=== PATIENT | female | born 1990 | race Caucasian/White ===

== ENCOUNTER → 2018-06-03 | Outpatient (CLI) | payer BC ==
[~2018-06-03] MED LIST: ALPR0.5T PO; BUSP10TA95 PO; DULO60CA6 PO; LEVO1CAP PO
--- NOTE | 2018-06-03 12:14 | Diagnostic Imaging Report ---
PROCEDURE: US Abdomen, limited. TECHNIQUE: Multiple realtime grayscale images were obtained over the abdomen in various projections. INDICATION: Bulge near umbilicus. There are no prior studies available for comparison. FINDINGS: Reportedly, there is clinical concern regarding a ventral hernia. There does seem to be a small 1 cm defect in the anterior abdominal wall just superior to the umbilicus. A small portion of the mesenteric fat has extended through this defect but there is no incarceration or obstruction of the bowel in this area. No other abnormality is identified. IMPRESSION: 1. There is a small defect in the anterior abdominal wall but there is no evidence for obstruction or incarceration of the bowel in this area. 2. If further imaging is desired, then CT would be recommended. Dictated by: Dictated on workstation # [id number]
== END ==
LOC: RAD 09:41
PROVIDERS: ATTEND Nurse Practitioner Family
DX: R10.9 Unspecified abdominal pain (principal)
CPT/HCPCS: 76705

== ENCOUNTER 2018-06-09 06:38 | Outpatient (CLI) | payer BC ==
[~2018-06-09] VITALS: Ht 157.5 cm; Wt 99.8 kg
[2018-06-09] MEDS ORDERED: DULO60CA6 PO (11:59)
[2018-06-09] MEDS ORDERED: LEVO1CAP PO (11:59)
[2018-06-09] MEDS ORDERED: ALPR0.5T PO (11:59)
[2018-06-09] MEDS ORDERED: BUSP10TA95 PO (12:52)
== END 2018-06-09 13:00 | disposition home or self-care (01) ==
LOC: PREOP 06:38
PROVIDERS: ATTEND Surgery
DX: Z01.818 Encounter for other preprocedural examination (principal)

== ENCOUNTER 2018-06-11 09:34 | Day surgery (SDC) | payer BC ==
[2018-06-11] VITALS (7 sets, daily range): BP systolic 94–116; BP diastolic 51–75
[~2018-06-11] VITALS: Ht 157.5 cm; Wt 99.8 kg
[2018-06-11] MEDS ORDERED: BUP/EPI 0.5% 1:200,000 (SENSORCAINE) 30 ML VIAL ONE (09:56)
[2018-06-11] MEDS ORDERED: oxyCODONE ER 10 MG (OxyCONTIN CR) TAB PO ONE (10:00)
[2018-06-11] MEDS ORDERED: PREGABALIN 75 MG (LYRICA) CAP PO ONE (10:00)
[2018-06-11] MEDS ORDERED: KETOROLAC 30 MG/ML VIAL IV SCH (10:00)
[2018-06-11] MEDS ORDERED: morphine INJ 10 MG/ML 1ML (SYR OR VIAL) IV PRN (10:00)
[2018-06-11] MEDS ORDERED: ceFAZolin 2 GM IV Premixed 50 ML IV ONE (10:00)
[2018-06-11] MEDS ORDERED: CELECOXIB 100 MG (CeleBREX) CAP PO ONE (10:00)
[2018-06-11] MEDS ORDERED: ceFAZolin 2 GM/50 ML PRE-MIX IVPB IV ONE (10:00)
[2018-06-11] MEDS: LACTATED RINGERS 1,000 ML IV PRN ×2 (10:00→12:25)
[2018-06-11] MEDS ORDERED: ACETAMINOPHEN 500 MG TAB (TYLENOL) PO ONE (10:00)
[2018-06-11] MEDS ORDERED: LIDOCAINE PF 0.5% 50 ML (XYLOCAINE) VIAL ONE ×2 (10:14→13:12)
[2018-06-11] MEDS ORDERED: proPOfol 200 MG/20 ML (DIPRIVAN) VIAL IV ONE (10:14)
[2018-06-11] MEDS ORDERED: MIDAZOLAM 2 MG/2 ML (VERSED) VIAL ONE (10:15)
[2018-06-11] MEDS ORDERED: KETAMINE HCL 100 MG/ML 5 ML VIAL ONE (10:15)
[2018-06-11 10:21] LABS: BASOPHILS % (AUTO) 1 % (0-10); EOSINOPHILS # (AUTO) 0.1 10^3/uL (0.0-0.3); EOSINOPHILS % (AUTO) 3 % (0-10); HEMATOCRIT 38 % (35-52); HEMOGLOBIN 13.2 G/DL (11.5-16.0); LYMPHOCYTES # (AUTO) 1.7 X 10^3 (1.0-4.0); LYMPHOCYTES % (AUTO) 39 % (12-44); MEAN CORPUSCULAR HEMOGLOBIN 29 PG (25-34); MEAN CORPUSCULAR HGB CONC 35 G/DL (32-36); MEAN CORPUSCULAR VOLUME 85 FL (80-99); MEAN PLATELET VOLUME 9.9 FL (7.4-10.4); MONOCYTES # (AUTO) 0.4 X 10^3 (0.0-1.0); MONOCYTES % (AUTO) 9 % (0-12); NEUTROPHILS # (AUTO) 2.1 X 10^3 (1.8-7.8); NEUTROPHILS % (AUTO) 48 % (42-75); PLATELET COUNT 282 10^3/uL (130-400); RED BLOOD COUNT 4.52 10^6/uL (4.35-5.85); RED CELL DISTRIBUTION WIDTH 13.6 % (10.0-14.5); WHITE BLOOD COUNT 4.3 10^3/uL (4.3-11.0)
[2018-06-11] MEDS ORDERED: ONDANSETRON 4 MG/2 ML (SDV) Z0FRAN ONE (10:28)
[2018-06-11] MEDS ORDERED: ROCURONIUM 10 MG/ML 5 ML SYRINGE IV ONE ×2 (10:28→12:50)
[2018-06-11] MEDS ORDERED: DEXAMETHASONE 10 MG/ML (DECADRON) 1 ML VIAL ONE (10:28)
[2018-06-11] MEDS ORDERED: SEVOFLURANE (ULTANE) 15 ML INHAL SOLN ONE ×7 (10:28→14:04)
[2018-06-11] MEDS ORDERED: FAMOTIDINE 20MG/2ML IV (PEPCID) IVP ONE (10:30)
--- NOTE | 2018-06-11 11:21 | Progress Note-Pre Operative ---
Pre-Operative Progress Note H&P Reviewed The H&P was reviewed, patient examined and no changes noted. Date Seen by Provider: Jun 07, 2018 Time Seen by Provider: 16:20 Date H&P Reviewed: Jun 11, 2018 Time H&P Reviewed: 11:21 Pre-Operative Diagnosis: ventral hernia SHANTHI HOSKINS MD Jun 11, 2018 11:21
[2018-06-11] MEDS ORDERED: HYDR25CA PO (12:02)
[2018-06-11] MEDS ORDERED: ROPIVACAINE 5MG/ML 30ML VIAL ONE (12:50)
[2018-06-11] MEDS ORDERED: PHENYLEPHRINE INJ 10 MG/ML (NEO-SYNEPHRINE 1%) ONE (12:52)
[2018-06-11] MEDS ORDERED: GLYCOPYRROLATE 0.2 MG/ML (ROBINUL) 2 ML VIAL ONE (12:57)
[2018-06-11] MEDS ORDERED: NEOSTIGMINE 1 MG/ML 5 ML SYRINGE ONE (12:57)
[2018-06-11] MEDS ORDERED: NS (IVPB) 250 ML ONE (13:12)
--- NOTE | 2018-06-11 13:23 | Operative Report ---
Operative Report Date of Procedure/Surgery Jun 11, 2018 Surgeon (s) SHANTHI HOSKINS MD Breaker Mechanic (s): Shaylee Conley (Med Student III) Post-Operative Diagnosis same Procedure Performed robotic assisted repair of ventral hernia with mesh Description of Procedure Anesthesia Type: General Estimated blood loss (mL): minimal Specimen(s) collected/removed none Description of the Procedure Indication for the procedure: This lady presented with a primary ventral hernia with incarcerated omentum, just superior to the umbilicus. She was offered repair using minimally invasive technique robotic assistance and mesh reinforcement. Informed consent was obtained after reviewing the operative details and complications of wound infection, infection of the mesh and recurrence of the hernia. Description of the procedure: she was placed supine on the operative table and general anesthesia induced. 2 g of Ancef were administered intravenously as prophylaxis against wound infection. Sequential compression devices were placed around her legs, to minimize the risk of venous thrombosis. Abdomen was then and draped in the usual sterile manner. The right side of her body was lifted up and a roll to facilitate strangulation of the robotic system. Pneumoperitoneum was established using a Veress needle introduced over the right subcostal margin, along the mid clavicular line. Intra-abdominal pressure was maintained at 15 mmHg using carbon dioxide insufflation. A 12 mm trocar was placed and anatomy visualized using the 30, high-definition laparoscope, associated with da Radha system. Under direct view, I placed another 10 mm trocar along the right side of the abdomen, overlying the midaxillary line, followed by an 8 mm trocar over the right lower quadrant. The robotic system was then docked in place. Laparoscopic survey confirmed omentum and extraperitoneal fat, herniating through a 2 cm defect superior to the umbilicus. It was reduced and the defect closed primarily using 0V LOC suture with robotic assistance. Intra-abdominal pressure was reduced to 11 mmHg, during this maneuver, to reduce the tension on the repair. It was then reinforced with polypropylene mesh measuring 11.4 cm in diameter, attached to a self-retaining balloon system. The edges of the mesh was secured to the abdominal muscles using 20V LOC sutures with the robotic assistance. Hemostasis was satisfactory and the operation concluded. Incisions were closed using 4-0 Vicryl, in a subcuticular fashion. 0.5 percent Marcaine with epinephrine was infiltrated along the incisions, both preemptively and at the conclusion of the operation. She tolerated the procedure well, was extubated in the operating room and taken to the recovery room in a stable condition. Findings of the Procedure See op report Allergies and Home Medications Allergies Coded Allergies: shellfish derived (Verified Allergy, Mild, GI UPSET, 06/09/18) Home Medications Alprazolam 0.5 Mg Tablet, 0.5 MG PO PRN, (Reported) Buspirone HCl 10 Mg Tablet, 20 MG PO BID, (Reported) Duloxetine HCl 60 Mg Capsule.dr, 90 MG PO DAILY, (Reported) Hydroxyzine Pamoate 25 Mg Capsule, 25-50 MG PO HS PRN for PRN, (Reported) Levomefolate/Algal Oil 1 Each Capsule, 1 EACH PO DAILY, (Reported) Patient Home Medication List Home Medication List Reviewed: Yes SHANTHI HOSKINS MD Jun 11, 2018 13:23
[2018-06-11] MEDS ORDERED: OXYC1TAB87 PO (13:24)
--- NOTE | 2018-06-11 13:25 | Discharge Inst-Simple/Standard ---
Discharge Inst-Standard Discharge Medications New, Converted or Re-Newed RX: RX on Chart Patient Instructions/Follow Up Plan of Care/Instructions/FU: Band-Aids off in 48 hours. Incentive spirometry. Follow-up in 4 weeks Activity as Tolerated: No Goal: no lifting over 10 pounds. Discharge Diet: No Restrictions SHANTHI HOSKINS MD Jun 11, 2018 13:25
[2018-06-11] MEDS ORDERED: KETOROLAC 30 MG/ML VIAL IVP ONE (14:00)
[2018-06-11] MEDS ORDERED: HYDROmorphone 2 MG/ML VIAL (DILAUDID) IV ONE (14:00)
[2018-06-11] MEDS ORDERED: MEPERIDINE (DEMEROL) INJ 50 MG/ML IVP ONE (14:00)
[2018-06-11] MEDS ORDERED: fentaNYL INJECTION 100 MCG/2 ML AMP IVP ONE ×2 (14:00→16:00)
[2018-06-11] MEDS ORDERED: ONDANSETRON 4 MG/2 ML (SDV) Z0FRAN IVP PRN (14:00)
[2018-06-11] MEDS ORDERED: PHENYLEPHRINE 100 MCG/ML 10 ML (ANESTHESIA) SYR ONE (14:04)
[2018-06-11] MEDS ORDERED: oxyCODONE/APAP 5/325MG (PERCOCET 5) TABLET PO ONE (15:00)
== END 2018-06-11 18:40 | disposition home or self-care (01) ==
LOC: SDC 09:34
PROVIDERS: ATTEND Surgery
DX: K43.6 Other and unspecified ventral hernia with obstruction, without gangrene (principal); J45.909 Unspecified asthma, uncomplicated; K21.9 Gastro-esophageal reflux disease without esophagitis; E66.01 Morbid (severe) obesity due to excess calories; Z68.41 Body mass index [BMI] 40.0-44.9, adult; Z79.899 Other long term (current) drug therapy
CPT/HCPCS: 36415; 84703; 85025; 87081; 94664

== ENCOUNTER → 2020-04-09 | Outpatient (CLI) | payer BC ==
[~2020-04-09] MED LIST changes: +HYDR25CA PO; +OXYC1TAB87 PO
--- NOTE | 2020-04-09 16:15 | Diagnostic Imaging Report ---
PROCEDURE: CT head without contrast. TECHNIQUE: Multiple contiguous axial images were obtained through the brain without the use of intravenous contrast. Auto Exposure Controls were utilized during the CT exam to meet ALARA standards for radiation dose reduction. INDICATION: Headache and dizziness. FINDINGS: The ventricles and sulci are within normal limits. There is no hydrocephalus or cerebral edema. There is no midline shift or mass effect. There is no intracranial mass, hemorrhage, or extra-axial fluid collection. The visualized paranasal sinuses and mastoid air cells are clear. There are no regional areas of decreased attenuation appreciated to suggest an acute CVA. IMPRESSION: No acute intracranial abnormality. Dictated by: Dictated on workstation # [id number]
== END ==
LOC: RAD 15:45
PROVIDERS: ATTEND Nurse Practitioner Family
DX: R51 Headache (principal)
CPT/HCPCS: 70450

== ENCOUNTER 2021-08-14 17:41 | Emergency (ER) | payer BC ==
[~2021-08-14] VITALS: Ht 157.5 cm; Wt 67.6 kg
[~2021-08-14 17:41] MED LIST changes: -DULO60CA6 PO; +DULO60CA7 PO
--- NOTE | 2021-08-14 18:07 | ED Respiratory ---
General Chief Complaint: COVID19 Suspect/Confirmed Stated Complaint: LOW O2 History of Present Illness Date Seen by Provider: Aug 14, 2021 Time Seen by Provider: 18:00 Initial Comments 31-year-old female presents for SaO2's in the upper 80s. She has had COVID symptoms for approximately 7 days, she was tested yesterday and found to be positive at [facility]. She has been managing at home but checking her pulse ox. She reports that it gets to 88 or 89% but does not maintain there it does return back to the 94 to 96% range. She has not been vaccinated from Covid. She was not referred for monoclonial antibody infusions. She lives with her mom, who is COVID + but not as sick. Mother was vaccinated. Timing/Duration: week Severity: moderate Associated Symptoms: No chest pain/soreness; cough; No dizziness, No earache, No facial pain; fever/chills, lightheadedness, muscle aches; No nasal congestion, No nasal drainage; shortness of breath Allergies and Home Medications Allergies Coded Allergies: shellfish derived (Verified Allergy, Mild, GI UPSET, 06/09/18) Patient Home Medication List Home Medication List Reviewed: Yes Alprazolam (Xanax) 0.5 Mg Tablet, 0.5 MG PO PRN, (Reported) Entered as Reported by: NAOMIE TAN on 06/09/18 1159 Buspirone HCl (Buspirone HCl) 10 Mg Tablet, 20 MG PO BID, (Reported) Entered as Reported by: NAOMIE TAN on 06/09/18 1252 Dexamethasone (Decadron) 6 Mg Tablet, 6 MG PO DAILY Prescribed by: STAR PRESLEY on 08/14/212018 Duloxetine HCl (Cymbalta) 60 Mg Capsule.dr, 90 MG PO DAILY, (Reported) Entered as Reported by: NAOMIE TAN on 06/09/18 1159 Hydroxyzine Pamoate (Vistaril) 25 Mg Capsule, 25-50 MG PO HS PRN for PRN, (Reported) Entered as Reported by: THOMAS MATRIN on 06/11/18 1202 Levomefolate/Algal Oil (Deplin-Algal Oil 15 mg Capsule) 1 Each Capsule, 1 EACH PO DAILY, (Reported) Entered as Reported by: NAOMIE TAN on 06/09/18 1159 Oxycodone HCl/Acetaminophen (Percocet 5-325 mg Tablet) 1 Each Tablet, 1 TAB PO Q4H PRN for PAIN-MODERATE Prescribed by: SHANTHI HOSKINS on 06/11/18 1324 Review of Systems Review of Systems Constitutional: see HPI, fever, malaise, weakness EENTM: see HPI, no symptoms reported Respiratory: see HPI, cough, dyspnea on exertion Cardiovascular: no symptoms reported, see HPI Gastrointestinal: no symptoms reported, see HPI, loss of appetite Genitourinary: no symptoms reported, see HPI Musculoskeletal: no symptoms reported, see HPI Skin: No rash All Other Systems Reviewed Negative Unless Noted: Yes Past Dcvavsg-Apbfbp-Ofyopk Hx Patient Social History Smoking Status: Never a Smoker Smokeless Tobacco Frequency: Never a User Use of E-Cig and/or Vaping Ismael: Never a User Substance use?: No Alcohol Use?: Yes Alcohol Frequency: Rarely Pt feels they are or have been: No Seasonal Allergies Seasonal Allergies: No Past Medical History Tonsillectomy Headaches /Migraines Reproductive Disorders: No Sexually Transmitted Disease: No HIV/AIDS: No Gastroesophageal Reflux Loss of Vision: Bilateral Hearing Impairment: Denies Anxiety, Depression Adverse Reaction/Blood Tranf: No (N/A) Family Medical History Reviewed Nursing Family Hx Physical Exam Vital Signs - First Documented 08/14/21 17:59 Temp 38.3 Pulse 116 Resp 17 B/P (MAP) 115/79 (91) O2 Delivery Room Air Capillary Refill : Height: 5'2.00" Weight: 220lbs. 0.0oz. 99.822064xa; 40.2 BMI Method: General Appearance: mild distress HEENT: PERRL/EOMI, normal ENT inspection, TMs normal, pharynx normal Neck: non-tender, full range of motion, supple, normal inspection Respiratory: chest non-tender, decreased breath sounds Cardiovascular: normal peripheral pulses, regular rate, rhythm, tachycardia Gastrointestinal: normal bowel sounds, non tender, soft Neurologic/Psychiatric: no motor/sensory deficits, alert, normal mood/affect, oriented x 3 Skin: normal color, warm/dry Focused Exam Lactate Level 08/14/21 18:05: Lactic Acid Level 0.66 Lactic Acid Level Laboratory Tests Test 08/14/21 18:05 Lactic Acid Level 0.66 MMOL/L (0.50-2.00) Progress/Results/Core Measures Suspected Sepsis SIRS Temperature: Pulse: Respiratory Rate: Laboratory Tests 08/14/21 18:05: White Blood Count 2.2L Blood Pressure / Mean: 08/14/21 18:05: Lactic Acid Level 0.66 Laboratory Tests 08/14/21 18:05: Creatinine 0.98, INR Comment 0.9, Platelet Count 134, Total Bilirubin 0.2 Results/Orders Lab Results Laboratory Tests Test 08/14/21 18:05 08/14/21 18:25 08/14/21 19:45 08/14/21 21:12 Range/Units White Blood Count 2.2 L 4.3-11.0 10^3/uL Red Blood Count 4.65 3.80-5.11 10^6/uL Hemoglobin 13.3 11.5-16.0 g/dL Hematocrit 40 35-52 % Mean Corpuscular Volume 87 80-99 fL Mean Corpuscular Hemoglobin 29 25-34 pg Mean Corpuscular Hemoglobin Concent 33 32-36 g/dL Red Cell Distribution Width 13.6 10.0-14.5 % Platelet Count 134 130-400 10^3/uL Mean Platelet Volume 10.8 9.0-12.2 fL Immature Granulocyte % (Auto) 0 % Neutrophils (%) (Auto) 61 42-75 % Lymphocytes (%) (Auto) 30 12-44 % Monocytes (%) (Auto) 9 0-12 % Eosinophils (%) (Auto) 0 0-10 % Basophils (%) (Auto) 1 0-10 % Neutrophils # (Auto) 1.3 L 1.8-7.8 10^3/uL Lymphocytes # (Auto) 0.7 L 1.0-4.0 10^3/uL Monocytes # (Auto) 0.2 0.0-1.0 10^3/uL Eosinophils # (Auto) 0.0 0.0-0.3 10^3/uL Basophils # (Auto) 0.0 0.0-0.1 10^3/uL Immature Granulocyte # (Auto) 0.0 0.0-0.1 10^3/uL Percent Immature Platelet Fraction 3.4 0.0-7.6 % Prothrombin Time 12.7 12.2-14.7 SEC INR Comment 0.9 0.8-1.4 Activated Partial Thromboplast Time 34 24-35 SEC Sodium Level 136 135-145 MMOL/L Potassium Level 4.0 3.6-5.0 MMOL/L Chloride Level 103 98-107 MMOL/L Carbon Dioxide Level 22 21-32 MMOL/L Anion Gap 11 5-14 MMOL/L Blood Urea Nitrogen 10 7-18 MG/DL Creatinine 0.98 0.60-1.30 MG/DL Estimat Glomerular Filtration Rate 66 BUN/Creatinine Ratio 10 Glucose Level 99 70-105 MG/DL Lactic Acid Level 0.66 0.50-2.00 MMOL/L Calcium Level 8.2 L 8.5-10.1 MG/DL Corrected Calcium 8.5 8.5-10.1 MG/DL Total Bilirubin 0.2 0.1-1.0 MG/DL Aspartate Amino Transf (AST/SGOT) 20 5-34 U/L Alanine Aminotransferase (ALT/SGPT) 17 0-55 U/L Alkaline Phosphatase 57 40-136 U/L Total Protein 6.7 6.4-8.2 GM/DL Albumin 3.6 3.2-4.5 GM/DL Influenza Type A Antigen NEGATIVE NEGATIVE Influenza Type B Antigen NEGATIVE NEGATIVE Urine Color YELLOW Urine Clarity CLEAR Urine pH 6.0 5-9 Urine Specific [place] 1.020 1.016-1.022 Urine Protein NEGATIVE NEGATIVE Urine Glucose (UA) NEGATIVE NEGATIVE Urine Ketones TRACE H NEGATIVE Urine Nitrite NEGATIVE NEGATIVE Urine Bilirubin NEGATIVE NEGATIVE Urine Urobilinogen 0.2 < = 1.0 MG/DL Urine Leukocyte Esterase NEGATIVE NEGATIVE Urine RBC (Auto) NEGATIVE NEGATIVE Urine RBC NONE /HPF Urine WBC 5-10 H /HPF Urine Squamous Epithelial Cells 2-5 /HPF Urine Crystals NONE /LPF Urine Bacteria NEGATIVE /HPF Urine Casts PRESENT /LPF Urine Hyaline Casts 2-5 H /LPF Urine Mucus SMALL H /LPF Urine Culture Indicated CULTURE PENDING D-Dimer 0.44 0.00-0.49 UG/ML Test 08/14/21 21:14 Range/Units C-Reactive Protein High Sensitivity 1.89 H 0.00-0.50 MG/DL My Orders Orders - STAR PRESLEY Cbc With Automated Diff (08/14/21 18:04) Comprehensive Metabolic Panel (08/14/21 18:04) Blood Culture (08/14/21 18:04) Urinalysis (08/14/21 18:04) Urine Culture (08/14/21 18:04) Protime With Inr (08/14/21 18:04) Partial Thromboplastin Time (08/14/21 18:04) Chest 1 View, Ap/Pa Only (08/14/21 18:04) Ed Iv/Invasive Line Start (08/14/21 18:04) Influenza A & B Antigens (08/14/21 18:04) Ns Iv 1000 Ml (Sodium Chloride 0.9%) (08/14/21 18:15) Lactic Acid Analyzer (08/14/21 18:04) Acetaminophen Tablet (Tylenol Tablet) (08/14/21 18:04) Covid-19 External Lab Results (08/14/21 18:08) Isolation Central Supply Req (08/14/21 18:08) Rx-Albuterol Inhaler (Rx-Ventolin Hfa In (08/14/21 18:27) Dexamethasone Injection (Decadron Inje (08/14/21 18:27) Ed Iv/Invasive Line Start (08/14/21 19:22) Ns Iv 1000 Ml (Sodium Chloride 0.9%) (08/14/21 19:30) Rt Request For Service (08/14/21 20:46) Ambulate W/O 02-Home O2 Qual (08/14/21 20:56) Ct Angio Chest W (08/14/21 21:10) Iohexol Injection (Omnipaque 350 Mg/Ml 1 (08/14/21 21:15) Received Contrast (Hold Metformin- Contr (08/14/21 21:15) Ns (Ivpb) (Sodium Chloride 0.9% Ivpb Bag (08/14/21 21:15) Aspirin Tablet (Aspirin Tablet) (08/14/21 21:47) Incentive Spirometry (Nursing) Q2H (08/14/21 21:47) Vital Signs/I&O 08/14/21 08/14/21 08/14/21 08/14/21 17:59 17:59 18:17 19:48 Temp 38.3 38.3 38.0 Pulse 116 Resp 17 B/P (MAP) 115/79 (91) O2 Delivery Room Air Room Air Capillary Refill : Progress Note : Time: 18:00 Progress Note Patient seen and evaluated, will obtain labs, chest x-ray, 1 L IV fluid, Decadron 6 mg IV and 2 puffs of albuterol inhaler. SaO2 maintained 90-94%. Patient assisted to lie prone. 1899 will give second liter of NS. Temp 38.0. No complaints, UA Obtained. 2014 temp down to 37.7, SaO2 95% on 2 L O2 per [place]. [address] Pickett, discussed patient and reviewed labs. [place] patient could be discharged to home with O2. Will arrange. [address] Drummond, will check D-dimer, CRP, CT Angio. RT here for walk test, feel patient needs O2 at 1L for rest and 2L with activity. 2144 CT angio neg for PE but significant COVID changes in all 5 lobes. Discussed with patient. She was standing in room, without O2 on, SaO2 94%. Reports she is feeling some improvement. Patient agreeable to returning home, with O2. Awaiting DME for home O2. 2209 discharge instructions and strict precautions for return follow-up were discussed with the patient. She understands the importance of taking all medications and following prescribed regimen. Diagnostic Imaging Diagonstic Imaging: CT Plain Films/CT/US/NM/MRI: chest Comments NAME: AIDEE JOHNSON [facility] REC#: [id number] PT STATUS: REG ER : 1990 PHYSICIAN: STAR PRESLEY ADMIT DATE: 08/14/21/ER Draft Date of Exam:08/14/21 CHEST 1 VIEW, AP/PA ONLY INDICATION: Covid positive patient. COMPARISON: None. FINDINGS: Single frontal radiographic view of the chest was obtained and demonstrates bilateral patchy perihilar airspace opacities, right greater than left. There is no large effusion or pneumothorax. Cardiac silhouette and pulmonary vasculature are within normal limits. Osseous structures show no gross acute abnormality. IMPRESSION: Patchy bilateral perihilar infiltrates. Dictated on workstation # [id number] Dict: 08/14/21 1844 Trans: 08/14/21 185 VALERIE [id number] Interpreted by: MARY ANNE MENA MD Electronically signed by: Reviewed: Reviewed by Me Diagonstic Imaging: CT Plain Films/CT/US/NM/MRI: chest Comments NAME: AIDEE JOHNSON [facility] REC#: [id number] PT STATUS: REG ER : 1990 PHYSICIAN: STAR PRESLEY ADMIT DATE: 08/14/21/ER Signed Date of Exam:08/14/21 CT ANGIO CHEST W PROCEDURE: CT angiography of the chest with contrast. TECHNIQUE: Multiple contiguous axial images were obtained through the chest after uneventful bolus administration of intravenous contrast. 3D reconstructed CTA MIP acquisitions were also performed. Auto Exposure Controls were utilized during the CT exam to meet ALARA standards for radiation dose reduction. INDICATION: Decreased oxygen saturation. Covid infection. Elevated D-dimer. COMPARISON: Chest radiograph performed earlier the same date. FINDINGS: This helical CT pulmonary angiogram is nondiagnostic. The heart and great vessels are unremarkable. There is no pericardial effusion. There is no axillary, mediastinal or hilar adenopathy. Focal opacities are scattered throughout the lungs. No pleural effusion or pneumothorax. No central endobronchial obstructing lesions. Osseous structures appear normal. Limited views of the upper abdomen are unremarkable. IMPRESSION: 1. Nondiagnostic CT pulmonary angiogram. 2. Multifocal pneumonia, consistent with the history of Covid infection. Dictated by: Dictated on workstation # [id number] Dict: 08/14/212137 Trans: 08/14/212146 [facility] [id number] Interpreted by: LAURA REGALADO DO Electronically signed by: LAURA REGALADO DO 08/14/212146 Reviewed: Reviewed by Me Departure Impression Primary Impression: COVID-19 Disposition: 01 HOME, SELF-CARE Condition: Stable Departure-Patient Inst. Decision time for Depature: 21:40 Referrals: MECHELLE TONY MD (PCP/Family) Primary Care Physician Patient Instructions: COVID-19 (DC) Add. Discharge Instructions: Take aspirin 81 mg 1 tablet daily. Take an immune support vitamin, that has Zinc, vitamin C and E. Alternate between Tylenol 650 mg and ibuprofen 600 mg every 4 hours for fever. Take prescriptions as directed. Use your inhaler 2 puffs every 4 hours (if no improvement, wait 5-10 min, then 2 more puffs) for the next 48 hours then 2 puffs every 4 hours as needed. Increase water intake, 16 ounces every 2 hours while awake. Continue to take Muccinex 1 every 12 hours. Take deep breaths and cough several times every hour. Try to get up and walk for 5 to 10 minutes every 1-2 hours while awake. Use Incentive Spirometer every hour, while awake. Use home Oxygen 1 L at rest and 2 L with activity, have oxygen on at all times Isolate to home, until fever free for 72 hours without medication and respiratory symptoms improving. You will need to call Dr. Tony's office to reestablish care, until then you can follow-up with [facility] as needed. Follow-up with your primary care provider if symptoms are not improving or worsen. All discharge instructions reviewed with patient and/or family. Voiced understanding. Scripts Dexamethasone (Decadron) 6 Mg Tablet 6 MG PO DAILY, #6 TAB 0 Refills Prov: STAR PRESLEY 08/14/21 STAR PRESLEY Aug 14, 2021 18:07
[2021-08-14] MEDS: NS IV 1000 ML 1,000 ML IV SCH ×2 (18:16→19:28)
[2021-08-14] MEDS: ACETAMINOPHEN 500 MG TAB (TYLENOL) PO STA (18:17)
[2021-08-14 18:31] LABS: HEMOGLOBIN 13.3 g/dL (11.5-16.0); MEAN CORPUSCULAR VOLUME 87 fL (80-99)
[2021-08-14 18:33] LABS: BASOPHILS % (AUTO) 1 % (0-10); EOSINOPHILS % (AUTO) 0 % (0-10); HEMATOCRIT 40 % (35-52); LYMPHOCYTES # (AUTO) 0.7 10^3/uL (1.0-4.0); LYMPHOCYTES % (AUTO) 30 % (12-44); MEAN CORPUSCULAR HEMOGLOBIN 29 pg (25-34); MEAN CORPUSCULAR HGB CONC 33 g/dL (32-36); MEAN PLATELET VOLUME 10.8 fL (9.0-12.2); MONOCYTES # (AUTO) 0.2 10^3/uL (0.0-1.0); MONOCYTES % (AUTO) 9 % (0-12); NEUTROPHILS # (AUTO) 1.3 10^3/uL (1.8-7.8); NEUTROPHILS % (AUTO) 61 % (42-75); PLATELET COUNT 134 10^3/uL (130-400); WHITE BLOOD COUNT 2.2 10^3/uL (4.3-11.0)
[2021-08-14] MEDS: RX-ALBUTEROL INHALER 8.5 GM HFA (PROAIR) IH STA (18:33)
[2021-08-14 18:44] LABS: ALBUMIN 3.6 GM/DL (3.2-4.5); INR 0.9 (0.8-1.4); PROTHROMBIN TIME PATIENT 12.7 SEC (12.2-14.7)
[2021-08-14 18:46] LABS: CALCIUM 8.2 MG/DL (8.5-10.1)
[2021-08-14 18:47] LABS: TOTAL PROTEIN 6.7 GM/DL (6.4-8.2)
[2021-08-14 18:49] LABS: BILIRUBIN,TOTAL 0.2 MG/DL (0.1-1.0)
[2021-08-14 18:50] LABS: CREATININE SERUM 0.98 MG/DL (0.60-1.30)
--- NOTE | 2021-08-14 18:50 | Diagnostic Imaging Report ---
INDICATION: Covid positive patient. COMPARISON: None. FINDINGS: Single frontal radiographic view of the chest was obtained and demonstrates bilateral patchy perihilar airspace opacities, right greater than left. There is no large effusion or pneumothorax. Cardiac silhouette and pulmonary vasculature are within normal limits. Osseous structures show no gross acute abnormality. IMPRESSION: Patchy bilateral perihilar infiltrates. Dictated by: Dictated on workstation # [id number]
[2021-08-14 19:53] LABS: BILIRUBIN,URINE NEGATIVE (NEGATIVE); CLARITY,URINE CLEAR; COLOR,URINE YELLOW; GLUCOSE, URINE (UA) NEGATIVE (NEGATIVE); KETONES,URINE TRACE (NEGATIVE); LEUKOCYTE ESTERASE ,URINE NEGATIVE (NEGATIVE); NITRITE,URINE NEGATIVE (NEGATIVE); PROTEIN,URINE NEGATIVE (NEGATIVE)
[2021-08-14 20:16] LABS: BACTERIA,URINE NEGATIVE /HPF
[2021-08-14] MEDS ORDERED: DEXA6TAB6 PO (20:19)
[2021-08-14] MEDS ORDERED: IOHEXOL 350 MG/ML 100 ML (OMNIPAQUE 350) VIAL IV ONE (21:15)
[2021-08-14] MEDS ORDERED: HOLD METFORMIN - RECEIVED CONTRAST 20 ML VIAL IV SCH (21:15)
[2021-08-14] MEDS ORDERED: NS 100 ML (IVPB) BAG IV ONE (21:15)
--- NOTE | 2021-08-14 21:45 | Diagnostic Imaging Report ---
PROCEDURE: CT angiography of the chest with contrast. TECHNIQUE: Multiple contiguous axial images were obtained through the chest after uneventful bolus administration of intravenous contrast. 3D reconstructed CTA MIP acquisitions were also performed. Auto Exposure Controls were utilized during the CT exam to meet ALARA standards for radiation dose reduction. INDICATION: Decreased oxygen saturation. Covid infection. Elevated D-dimer. COMPARISON: Chest radiograph performed earlier the same date. FINDINGS: This helical CT pulmonary angiogram is nondiagnostic. The heart and great vessels are unremarkable. There is no pericardial effusion. There is no axillary, mediastinal or hilar adenopathy. Focal opacities are scattered throughout the lungs. No pleural effusion or pneumothorax. No central endobronchial obstructing lesions. Osseous structures appear normal. Limited views of the upper abdomen are unremarkable. IMPRESSION: 1. Nondiagnostic CT pulmonary angiogram. 2. Multifocal pneumonia, consistent with the history of Covid infection. Dictated by: Dictated on workstation # [id number]
[2021-08-14] MEDS: ASPIRIN 325 MG (5 GR) TABLET PO STA (21:55)
[2021-08-14 22:20] VITALS: BP 111/62
== END 2021-08-14 22:23 | disposition home or self-care (01) ==
LOC: EDUNIT# 17:41 → ER 17:42
DX: U07.1 COVID-19 (principal); R00.0 Tachycardia, unspecified; F41.9 Anxiety disorder, unspecified; F32.9 Major depressive disorder, single episode, unspecified; Z79.899 Other long term (current) drug therapy
CPT/HCPCS: 36415; 71045; 71275; 80053; 81000; 83605; 85025; 85379; 85610; 85730; 86141; 87040; 87088; 87804; 94761

== ENCOUNTER 2021-08-18 11:52 | Inpatient (IN) | payer BC ==
[~2021-08-18] VITALS: Ht 157.4 cm; Wt 112.9 kg
[~2021-08-18 11:52] MED LIST changes: +DEXA6TAB6 PO
--- NOTE | 2021-08-18 12:28 | ED General ---
General Chief Complaint: COVID19 Suspect/Confirmed Stated Complaint: COVID POSITIVE/SOA/FEVER Source of Information: Patient Exam Limitations: No Limitations History of Present Illness Date Seen by Provider: Aug 18, 2021 Time Seen by Provider: 12:15 Initial Comments To ER by DUSTIN from home with c/o fever and increasing shortness of breath. Developed COVID symptoms on 08/07/21. She tested COVID + at [facility] walk-in clinic (does not have a PCP--last PCP was in [place], [place]) on 08/13/21. She was evaluated here in ER on 08/14/21 and found to have exertional hypoxia down to 88% and sent home with oxygen. She arrives to ER today without her oxygen and states she hasnt been wearing it for about 30 minutes. Her O2 upon ambulation to the room is 74% increased to 95% on 4 liters. Timing/Duration: Getting Worse, Other Severity: Moderate Associated Systoms: Cough Allergies and Home Medications Allergies Coded Allergies: shellfish derived (Verified Allergy, Mild, GI UPSET, 06/09/18) Patient Home Medication List Home Medication List Reviewed: Yes Alprazolam (Xanax) 0.5 Mg Tablet, 0.5 MG PO PRN, (Reported) Entered as Reported by: NAOMIE TAN on 06/09/18 1159 Buspirone HCl (Buspirone HCl) 10 Mg Tablet, 20 MG PO BID, (Reported) Entered as Reported by: NAOMIE TAN on 06/09/18 1252 Dexamethasone (Decadron) 6 Mg Tablet, 6 MG PO DAILY Prescribed by: STAR PRESLEY on 08/14/21 2019 Duloxetine HCl (Cymbalta) 60 Mg Capsule.dr, 90 MG PO DAILY, (Reported) Entered as Reported by: NAOMIE TAN on 06/09/18 1159 Hydroxyzine Pamoate (Vistaril) 25 Mg Capsule, 25-50 MG PO HS PRN for PRN, (Reported) Entered as Reported by: THOMAS MARTIN on 06/11/18 1202 Levomefolate/Algal Oil (Deplin-Algal Oil 15 mg Capsule) 1 Each Capsule, 1 EACH PO DAILY, (Reported) Entered as Reported by: NAOMIE TAN on 06/09/18 1159 Oxycodone HCl/Acetaminophen (Percocet 5-325 mg Tablet) 1 Each Tablet, 1 TAB PO Q4H PRN for PAIN-MODERATE Prescribed by: SHANTHI HOSKINS on 06/11/18 1324 Review of Systems Review of Systems Constitutional: see HPI, chills, fever EENTM: see HPI Respiratory: see HPI, cough, short of breath Cardiovascular: no symptoms reported Genitourinary: no symptoms reported Musculoskeletal: no symptoms reported Skin: no symptoms reported Psychiatric/Neurological: No Symptoms Reported Hematologic/Lymphatic: No Symptoms Reported Past Ajxmeic-Ogamdi-Obrdni Hx Seasonal Allergies Seasonal Allergies: No Past Medical History Tonsillectomy Headaches /Migraines Reproductive Disorders: No Sexually Transmitted Disease: No HIV/AIDS: No Gastroesophageal Reflux Loss of Vision: Bilateral Hearing Impairment: Denies Anxiety, Depression Adverse Reaction/Blood Tranf: No (N/A) Physical Exam Vital Signs Vital Signs - First Documented 08/18/21 12:10 Temp 36.4 Pulse 120 Resp 20 B/P (MAP) 103/69 (80) Pulse Ox 94 Capillary Refill : Height, Weight, BMI Height: 5'2.00" Weight: 220lbs. 0.0oz. 99.019593ow; 27.00 BMI Method: General Appearance: WD/WN, Mild Distress (tachypneic), Obese Eyes: Bilateral Eye Normal Inspection, Bilateral Eye PERRL HEENT: PERRL/EOMI, TMs Normal Neck: Full Range of Motion, Normal Inspection Respiratory: Chest Non Tender, Lungs Clear, No Accessory Muscle Use, Respiratory Distress (tachypnea, SpO2 74% room air up to 95% on 4 Liters. ) Cardiovascular: Regular Rate, Rhythm, Normal Peripheral Pulses Gastrointestinal: Normal Bowel Sounds, Non Tender, Soft Extremity: Normal Capillary Refill, Normal Inspection Neurologic/Psychiatric: Alert, Oriented x3 Skin: Normal Color, Warm/Dry Progress/Results/Core Measures Suspected Sepsis SIRS Temperature: Pulse: Respiratory Rate: Laboratory Tests 08/18/21 12:15: White Blood Count 3.2L Blood Pressure / Mean: Laboratory Tests 08/18/21 12:15: Creatinine 0.81, Platelet Count 250, Total Bilirubin 0.4 Results/Orders Lab Results Laboratory Tests Test 08/18/21 12:15 08/18/21 12:42 Range/Units White Blood Count 3.2 L 4.3-11.0 10^3/uL Red Blood Count 4.94 3.80-5.11 10^6/uL Hemoglobin 13.9 11.5-16.0 g/dL Hematocrit 43 35-52 % Mean Corpuscular Volume 86 80-99 fL Mean Corpuscular Hemoglobin 28 25-34 pg Mean Corpuscular Hemoglobin Concent 33 32-36 g/dL Red Cell Distribution Width 13.6 10.0-14.5 % Platelet Count 250 130-400 10^3/uL Mean Platelet Volume 10.4 9.0-12.2 fL Immature Granulocyte % (Auto) 2 % Neutrophils (%) (Auto) 73 42-75 % Lymphocytes (%) (Auto) 18 12-44 % Monocytes (%) (Auto) 8 0-12 % Eosinophils (%) (Auto) 0 0-10 % Basophils (%) (Auto) 0 0-10 % Neutrophils # (Auto) 2.3 1.8-7.8 10^3/uL Lymphocytes # (Auto) 0.6 L 1.0-4.0 10^3/uL Monocytes # (Auto) 0.2 0.0-1.0 10^3/uL Eosinophils # (Auto) 0.0 0.0-0.3 10^3/uL Basophils # (Auto) 0.0 0.0-0.1 10^3/uL Immature Granulocyte # (Auto) 0.1 0.0-0.1 10^3/uL Sodium Level 142 135-145 MMOL/L Potassium Level 3.9 3.6-5.0 MMOL/L Chloride Level 105 98-107 MMOL/L Carbon Dioxide Level 23 21-32 MMOL/L Anion Gap 14 5-14 MMOL/L Blood Urea Nitrogen 17 7-18 MG/DL Creatinine 0.81 0.60-1.30 MG/DL Estimat Glomerular Filtration Rate 82 BUN/Creatinine Ratio 21 Glucose Level 125 H 70-105 MG/DL Calcium Level 8.8 8.5-10.1 MG/DL Corrected Calcium 9.0 8.5-10.1 MG/DL Total Bilirubin 0.4 0.1-1.0 MG/DL Aspartate Amino Transf (AST/SGOT) 25 5-34 U/L Alanine Aminotransferase (ALT/SGPT) 27 0-55 U/L Alkaline Phosphatase 67 40-136 U/L C-Reactive Protein High Sensitivity 6.99 H 0.00-0.50 MG/DL Total Protein 7.5 6.4-8.2 GM/DL Albumin 3.7 3.2-4.5 GM/DL Procalcitonin 0.06 <0.10 NG/ML Serum Test, Qualitative NEGATIVE NEGATIVE D-Dimer 0.46 0.00-0.49 UG/ML My Orders Orders - DEXTER ERIC APRN Cbc With Automated Diff (08/18/21 12:22) Comprehensive Metabolic Panel (08/18/21 12:22) Hs C Reactive Protein (08/18/21 12:22) Fibrin Degradation Products (08/18/21 12:22) Chest 1 View, Ap/Pa Only (08/18/21 12:22) Ed Iv/Invasive Line Start (08/18/21 12:22) Hcg,Qualitative Serum (08/18/21 12:22) Procalcitonin (Pct) (08/18/21 12:22) Vital Signs/I&O 08/18/21 12:10 Temp 36.4 Pulse 120 Resp 20 B/P (MAP) 103/69 (80) Pulse Ox 94 Capillary Refill : Departure Communication (Admissions) 1319-I spoke with Dr. Hardin, we will admit on dexamethasone. We will give Tylenol 3 for cough, Motrin for fever and prophylactic Lovenox. She is up to 6 L per nasal cannula at rest which has an SPO2 of 93% currently. Impression Primary Impression: COVID-19 Additional Impression: Hypoxia Disposition: ADMITTED INPATIENT Condition: Stable Admissions Decision to Admit Reason: Admit from ER (General) Decision to Admit/Date: Aug 18, 2021 Time/Decision to Admit Time: 13:19 Departure-Patient Inst. Referrals: MECHELLE TONY MD (PCP/Family) Primary Care Physician DEXTER ERIC APRN Aug 18, 2021 12:28
[2021-08-18 12:38] LABS: BASOPHILS % (AUTO) 0 % (0-10); EOSINOPHILS % (AUTO) 0 % (0-10); HEMATOCRIT 43 % (35-52); HEMOGLOBIN 13.9 g/dL (11.5-16.0); LYMPHOCYTES # (AUTO) 0.6 10^3/uL (1.0-4.0); LYMPHOCYTES % (AUTO) 18 % (12-44); MEAN CORPUSCULAR HEMOGLOBIN 28 pg (25-34); MEAN CORPUSCULAR HGB CONC 33 g/dL (32-36); MEAN CORPUSCULAR VOLUME 86 fL (80-99); MEAN PLATELET VOLUME 10.4 fL (9.0-12.2); MONOCYTES # (AUTO) 0.2 10^3/uL (0.0-1.0); MONOCYTES % (AUTO) 8 % (0-12); NEUTROPHILS # (AUTO) 2.3 10^3/uL (1.8-7.8); NEUTROPHILS % (AUTO) 73 % (42-75); PLATELET COUNT 250 10^3/uL (130-400); WHITE BLOOD COUNT 3.2 10^3/uL (4.3-11.0)
[2021-08-18 12:44] LABS: ALBUMIN 3.7 GM/DL (3.2-4.5); POTASSIUM 3.9 MMOL/L (3.6-5.0)
[2021-08-18 12:45] LABS: CALCIUM 8.8 MG/DL (8.5-10.1)
[2021-08-18 12:47] LABS: TOTAL PROTEIN 7.5 GM/DL (6.4-8.2)
[2021-08-18 12:49] LABS: BILIRUBIN,TOTAL 0.4 MG/DL (0.1-1.0)
[2021-08-18 12:51] LABS: CREATININE SERUM 0.81 MG/DL (0.60-1.30)
--- NOTE | 2021-08-18 12:51 | Diagnostic Imaging Report ---
EXAM: CHEST 1 VIEW, AP/PA ONLY INDICATION: Cough. COVID positive. COMPARISON: 08/14/2021. FINDINGS: Low lung volumes. Multifocal airspace opacities throughout both lungs are similar to the prior exam allowing for the lower lung volumes. No pleural effusion or pneumothorax. No acute osseous findings. Normal heart size. IMPRESSION: Multifocal bilateral airspace opacities would be compatible with COVID pneumonitis. Allowing for the lower lung volumes, these findings are likely stable. Dictated by: Dictated on workstation # [id number]
[2021-08-18 14:21] VITALS: BP 114/79
[2021-08-18] MEDS ORDERED: ONDANSETRON 4 MG/2 ML (SDV) Z0FRAN IV PRN ×2 (14:45→17:00)
[2021-08-18] MEDS ORDERED: APAP 300 MG/CODEINE 30 MG (TYLENOL #3) TAB PO PRN (14:45)
[2021-08-18] MEDS ORDERED: IBUPROFEN 600 MG (MOTRIN) TAB PO PRN (14:45)
[2021-08-18] MEDS: ENOXAPARIN 40 MG/0.4 ML (LOVENOX) SYR SC SCH (15:00)
[2021-08-18] MEDS ORDERED: RT-ALBUTEROL HFA 8.5 GM INHALER IH SCH (15:00)
[2021-08-18] MEDS: dexAMETHasone 6 MG TAB (DECADRON) PO SCH (15:00)
[2021-08-18 16:10] VITALS: BP 122/84
[2021-08-18] MEDS ORDERED: PANTOPRAZOLE 40 MG (PROTONIX) TAB PO ONE (17:00)
[2021-08-18] MEDS ORDERED: ANTACID SUSP 30 ML UDC (MYLANTA) PO PRN (17:00)
[2021-08-18] MEDS ORDERED: guaiFENesin/DM (ROBITUSSIN DM) 10 ML UDC PO PRN (17:00)
[2021-08-18] MEDS ORDERED: ACETAMINOPHEN 325 MG TABLET PO PRN (17:00)
[2021-08-18] MEDS ORDERED: polyethylene glycoL POWDER 17 GM (MIRALAX) PACK PO PRN (17:00)
[2021-08-18] MEDS ORDERED: diphenhydrAMINE 25 MG TAB (BENADRYL) PO PRN (17:15)
[2021-08-18] MEDS ORDERED: MELATONIN 10 MG TABLET PO PRN (17:15)
[2021-08-18] MEDS ORDERED: RT-ALBUTEROL HFA 8.5 GM INHALER IH PRN (19:00)
[2021-08-18 19:32] VITALS: BP 122/84
[2021-08-18 19:40] VITALS: BP 120/85
[2021-08-18] MEDS: guaiFENesin (MUCINEX) 600 MG TAB PO SCH (20:37)
[2021-08-18] MEDS: SENNA W/DOCUSATE (SENOKOT S) TABLET PO SCH (20:37)
[2021-08-18] MEDS: DOCUSATE SODIUM 100 MG (COLACE) CAP PO SCH (20:37)
--- NOTE | 2021-08-18 20:53 | History & Physical-Hospitalist ---
History of Present Illness HPI/Chief Complaint Destiny Rosenbaum is a 31 year old female with PMH anxiety, depression, morbid obesity, who presented with shortness of breath. She was diagnosed with COVID last week. She has been taking steroids and using home oxygen. She was still short of breath on her oxygen and returned to the ER. She has been having fevers. She has been having cough. She reports chest pain with coughing. She has had diarrhea. Her appetite is poor. She is unvaccinated. Source: patient Exam Limitations: no limitations Date Seen 08/18/21 Time Seen by a Provider: 19:30 Attending Physician Harry Marion MD PCP Lily Raymond MD Referring Physician Date of Admission Aug 18, 2021 at 13:17 Home Medications & Allergies Home Medications Reviewed patient Home Medication Reconciliation performed by pharmacy medication reconciliations large animal husbandry technician and/or nursing. Patients Allergies have been reviewed. Allergies Allergies Coded Allergies shellfish derived (Verified Allergy, Mild, GI UPSET, 06/09/18) Past Oecbbpq-Jsspvu-Bdtzpv Hx Patient Social History Tobacco Use?: No Use of E-Cig and/or Vaping dev: Yes Substance use?: No Alcohol Use?: No Pt feels they are or have been: No Immunizations Up To Date First/Initial COVID19 Vaccinat: declined Second COVID19 Vaccination Zacarias: declined Tetanus Booster (TDap): Unknown Hepatitis A: Yes Hepatitis B: Yes Seasonal Allergies Seasonal Allergies: No Current Status status: No Advance Directives: No Communicates: Verbally Primary Language: Divehi Preferred Spoken Language: Divehi Is interpretation needed?: No Implanted or Applied Medical D: None Past Medical History Surgeries: Tonsillectomy Headaches /Migraines Sexually Transmitted Disease: No HIV/AIDS: No Gastroesophageal Reflux Loss of Vision: Bilateral Hearing Impairment: Denies Anxiety, Depression Adverse Reaction/Blood Tranf: No (N/A) Family Medical History No Pertinent Family Hx Review of Systems Constitutional: fever, malaise EENTM: no symptoms reported Respiratory: cough, short of breath Cardiovascular: chest pain Gastrointestinal: diarrhea Genitourinary: no symptoms reported Musculoskeletal: muscle pain Skin: no symptoms reported Psychiatric/Neurological: No Symptoms Reported Physical Exam Physical Exam Vital Signs Vital Signs - First Documented 08/18/21 19:03 FiO2 70 Capillary Refill : Height, Weight, BMI Height: 5'2.00" Weight: 220lbs. 0.0oz. 99.400484ov; 45.57 BMI Method: General Appearance: No Apparent Distress, Anxious, Obese HEENT: PERRL/EOMI, Pharynx Normal Neck: Normal Inspection, Supple Respiratory: Lungs Clear, Normal Breath Sounds, No Respiratory Distress, Other (wearing Vapotherm) Cardiovascular: Regular Rate, Rhythm, No Edema, No Murmur Gastrointestinal: Normal Bowel Sounds, Non Tender, Soft Extremity: Normal Inspection, Non Tender, No Pedal Edema Neurologic/Psychiatric: Alert, Oriented x3, No Motor/Sensory Deficits, Normal Mood/Affect Skin: Normal Color, Warm/Dry Results Results/Procedures Labs Laboratory Tests 08/18/21 12:15 Patient resulted labs reviewed. Imaging: Reviewed Imaging Report Assessment/Plan Admission Diagnosis Acute respiratory failure due to COVID-19 Admission Status: Inpatient Order (span 2 midnights) Reason for Inpatient Admission: Respiratory failure Assessment and Plan Acute respiratory failure due to COVID-19 Morbid obesity Anxiety and depression COVID+ 08/13 at [facility] Unvaccinated Requiring Vapotherm Decadron Discussed Actemra, risks/benefits/EUA use, patient agrees Procal normal, no antibiotics Ddimer normal, prophylactic Lovenox May require ICU transfer if oxygen requirement worsens Continue home meds Discussed prognosis and plan with mother via phone DVT prophylaxis: Lovenox Diagnosis/Problems Diagnosis/Problems (1) Acute respiratory failure due to COVID-19 Status: Acute (2) Lymphopenia associated with COVID-19 Status: Acute (3) Morbid obesity Status: Chronic (4) Anxiety and depression Status: Chronic HARRY MARION MD Aug 18, 2021 20:53
[2021-08-18] MEDS ORDERED: TOCILIZUMAB INJECTION (NON-FOR 800 MG in NS (IVPB) 60 ML IV ONE (22:00)
[2021-08-18] MEDS: DULoxetine 30 MG (CYMBALTA) CAP PO SCH (22:10)
[2021-08-18] MEDS: RT-ALBUTEROL HFA 8.5 GM INHALER IH SCH (22:57)
[2021-08-18 23:01] VITALS: BP 110/76
[2021-08-19] MEDS: RT-ALBUTEROL HFA 8.5 GM INHALER IH SCH ×6 (03:10→21:55)
[2021-08-19 03:45] VITALS: BP 95/67
[2021-08-19] MEDS: ALPRAZolam 0.25 MG (XANAX) TAB PO PRN ×2 (03:55→20:11)
[2021-08-19 05:39] LABS: BASOPHILS % (AUTO) 0 % (0-10); EOSINOPHILS % (AUTO) 0 % (0-10); HEMATOCRIT 39 % (35-52); HEMOGLOBIN 12.7 g/dL (11.5-16.0); LYMPHOCYTES # (AUTO) 0.7 10^3/uL (1.0-4.0); LYMPHOCYTES % (AUTO) 19 % (12-44); MEAN CORPUSCULAR HEMOGLOBIN 28 pg (25-34); MEAN CORPUSCULAR HGB CONC 33 g/dL (32-36); MEAN CORPUSCULAR VOLUME 86 fL (80-99); MEAN PLATELET VOLUME 10.3 fL (9.0-12.2); MONOCYTES # (AUTO) 0.4 10^3/uL (0.0-1.0); MONOCYTES % (AUTO) 12 % (0-12); NEUTROPHILS # (AUTO) 2.4 10^3/uL (1.8-7.8); NEUTROPHILS % (AUTO) 65 % (42-75); PLATELET COUNT 249 10^3/uL (130-400); WHITE BLOOD COUNT 3.7 10^3/uL (4.3-11.0)
[2021-08-19] MEDS: PANTOPRAZOLE 40 MG (PROTONIX) TAB PO SCH (05:42)
[2021-08-19 05:54] LABS: POTASSIUM 3.9 MMOL/L (3.6-5.0)
[2021-08-19 05:55] LABS: CALCIUM 8.6 MG/DL (8.5-10.1)
[2021-08-19 06:00] LABS: CREATININE SERUM 0.73 MG/DL (0.60-1.30)
[2021-08-19 08:00] VITALS: BP 110/76
[2021-08-19] MEDS ORDERED: TOCILIZUMAB INJECTION (NON-FOR 800 MG in NS (IVPB) 60 ML IV ONE (08:00)
[2021-08-19] MEDS: dexAMETHasone 6 MG TAB (DECADRON) PO SCH (09:01)
[2021-08-19] MEDS: SENNA W/DOCUSATE (SENOKOT S) TABLET PO SCH ×2 (09:01→20:10)
[2021-08-19] MEDS: guaiFENesin (MUCINEX) 600 MG TAB PO SCH ×2 (09:01→20:11)
[2021-08-19] MEDS: DOCUSATE SODIUM 100 MG (COLACE) CAP PO SCH ×2 (09:01→20:10)
[2021-08-19] MEDS: DULoxetine 30 MG (CYMBALTA) CAP PO SCH ×2 (09:01→20:10)
--- NOTE | 2021-08-19 10:10 | Progress Note - Hospitalist ---
Subjective HPI/CC On Admission Date Seen by Provider: Aug 19, 2021 Time Seen by Provider: 11:15 Destiny Rosenbaum is a 31 year old female with PMH anxiety, depression, morbid obesity, who presented with shortness of breath. She was diagnosed with COVID last week. She has been taking steroids and using home oxygen. She was still short of breath on her oxygen and returned to the ER. She has been having fevers. She has been having cough. She reports chest pain with coughing. She has had diarrhea. Her appetite is poor. She is unvaccinated. Subjective/Events-last exam Pt still having SOB Maintain on Vapotherm S/p Actemra Pt is very high risk for decompensation and intubation Checked meds and labs Review of Systems General: Fatigue, Malaise Pulmonary: Dyspnea, Cough Objective Exam Vital Signs Vital Signs Date Time Temp Pulse Resp B/P (MAP) Pulse Ox O2 Delivery O2 Flow Rate FiO2 08/20/21 04:17 36.0 70 20 108/74 (85) 98 Vapotherm 35.00 80.00 08/20/21 03:34 80 Capillary Refill : General Appearance: Anxious, Chronically ill, Mild Distress Respiratory: No Respiratory Distress, Accessory Muscle Use, Decreased Breath S ounds Cardiovascular: Regular Rate, Rhythm Neurologic/Psychiatric: Alert, Oriented x3, No Motor/Sensory Deficits, Normal Mood/Affect Results/Procedures Lab Laboratory Tests 08/19/21 05:20 Patient resulted labs reviewed. Imaging: Reviewed Imaging Report Assessment/Plan Assessment and Plan Assess & Plan/Chief Complaint Assessment: Acute respiratory failure due to COVID-19 Morbid obesity Anxiety and depression COVID+ 12/7 at [facility] Unvaccinated Requiring Vapotherm Decadron Discussed Actemra, risks/benefits/EUA use, patient agrees status post infus ion Procal normal, no antibiotics Ddimer normal, prophylactic Lovenox May require ICU transfer if oxygen requirement worsens Continue home meds Dr. Schmidt discussed prognosis and plan with mother via phone DVT prophylaxis: Lovenox ELLIOTT REYNOSO DO Aug 19, 2021 10:10
[2021-08-19 12:00] VITALS: BP 116/80
[2021-08-19 15:08] VITALS: BP 115/80
[2021-08-19] MEDS: ENOXAPARIN 40 MG/0.4 ML (LOVENOX) SYR SC SCH (16:19)
[2021-08-19 19:26] VITALS: BP 104/71
[2021-08-19 23:03] VITALS: BP 127/89
[2021-08-20] MEDS: RT-ALBUTEROL HFA 8.5 GM INHALER IH SCH ×6 (03:04→22:40)
[2021-08-20 04:17] VITALS: BP 108/74
[2021-08-20] MEDS: PANTOPRAZOLE 40 MG (PROTONIX) TAB PO SCH ×2 (05:26→09:06)
--- NOTE | 2021-08-20 07:06 | Progress Note - Hospitalist ---
Subjective HPI/CC On Admission Date Seen by Provider: Aug 20, 2021 Time Seen by Provider: 10:30 Destiny Rosenbaum is a 31 year old female with PMH anxiety, depression, morbid obesity, who presented with shortness of breath. She was diagnosed with COVID last week. She has been taking steroids and using home oxygen. She was still short of breath on her oxygen and returned to the ER. She has been having fevers. She has been having cough. She reports chest pain with coughing. She has had diarrhea. Her appetite is poor. She is unvaccinated. Subjective/Events-last exam Pt remains good when she is resting Vapotherm is at 30 liters and 70% Checked meds and labs Bowels are moving Instructed her to lay on her side or in the prone position Review of Systems General: Fatigue, Malaise Pulmonary: Dyspnea Objective Exam Vital Signs Vital Signs Date Time Temp Pulse Resp B/P (MAP) Pulse Ox O2 Delivery O2 Flow Rate FiO2 08/21/21 04:20 36.2 71 22 91/61 (71) 95 Vapotherm 30.00 65.00 08/20/21 22:40 50 Capillary Refill : General Appearance: No Apparent Distress, WD/WN, Chronically ill, Obese Respiratory: No Accessory Muscle Use, No Respiratory Distress, Decreased Breath Sounds Cardiovascular: Regular Rate, Rhythm Neurologic/Psychiatric: Alert, Oriented x3, Depressed Affect Results/Procedures Lab Patient resulted labs reviewed. Imaging: Reviewed Imaging Report Assessment/Plan Assessment and Plan Assess & Plan/Chief Complaint Assessment: Acute respiratory failure due to COVID-19 Morbid obesity Anxiety and depression COVID+ 12/7 at [facility] Unvaccinated Requiring Vapotherm Decadron Discussed Actemra, risks/benefits/EUA use, patient agrees status post infusion Procal normal, no antibiotics Ddimer normal, prophylactic Lovenox May require ICU transfer if oxygen requirement worsens Continue home meds Dr. Schmidt discussed prognosis and plan with mother via phone DVT prophylaxis: Lovenox 08/20/2021: Supportive care High risk for intubation Vapotherm Monitor closely ELLIOTT REYNOSO DO Aug 20, 2021 07:06
[2021-08-20 08:17] VITALS: BP 102/68
[2021-08-20] MEDS ORDERED: ARIP30TA21 PO (08:21)
[2021-08-20] MEDS ORDERED: QUET300T19 PO (08:21)
[2021-08-20] MEDS ORDERED: ACET-2267 PO (08:28)
[2021-08-20] MEDS ORDERED: IBUP-2473 PO (08:29)
[2021-08-20] MEDS ORDERED: GUAI600T43 PO (08:30)
[2021-08-20] MEDS: DOCUSATE SODIUM 100 MG (COLACE) CAP PO SCH ×2 (09:05→20:25)
[2021-08-20] MEDS: DULoxetine 30 MG (CYMBALTA) CAP PO SCH ×2 (09:06→20:25)
[2021-08-20] MEDS: SENNA W/DOCUSATE (SENOKOT S) TABLET PO SCH ×2 (09:06→20:25)
[2021-08-20] MEDS: guaiFENesin (MUCINEX) 600 MG TAB PO SCH ×2 (09:06→20:25)
[2021-08-20] MEDS: dexAMETHasone 6 MG TAB (DECADRON) PO SCH (09:06)
[2021-08-20 11:30] VITALS: BP 102/68
[2021-08-20] MEDS: ENOXAPARIN 40 MG/0.4 ML (LOVENOX) SYR SC SCH (15:59)
[2021-08-20 16:00] VITALS: BP 111/78
[2021-08-20 19:12] VITALS: BP 109/70
[2021-08-20] MEDS: ALPRAZolam 0.25 MG (XANAX) TAB PO PRN (20:25)
[2021-08-21 01:00] VITALS: BP 109/70
[2021-08-21 04:20] VITALS: BP 91/61
[2021-08-21] MEDS: RT-ALBUTEROL HFA 8.5 GM INHALER IH SCH ×6 (05:18→22:36)
--- NOTE | 2021-08-21 05:49 | Progress Note - Hospitalist ---
Subjective HPI/CC On Admission Date Seen by Provider: Aug 21, 2021 Time Seen by Provider: 11:15 Destiny Rosenbaum is a 31 year old female with PMH anxiety, depression, morbid obesity, who presented with shortness of breath. She was diagnosed with COVID last week. She has been taking steroids and using home oxygen. She was still short of breath on her oxygen and returned to the ER. She has been having fevers. She has been having cough. She reports chest pain with coughing. She has had diarrhea. Her appetite is poor. She is unvaccinated. Subjective/Events-last exam Pt doing okay Tried to get her to sleep on her side Vapotherm is at 35 liters 65% BiPAP may be required Pulmonary consult will be requested Checked meds and labs Pt is high risk for intubation Review of Systems General: Fatigue, Malaise Pulmonary: Dyspnea, Cough Objective Exam Vital Signs Vital Signs Date Time Temp Pulse Resp B/P (MAP) Pulse Ox O2 Delivery O2 Flow Rate FiO2 08/22/21 03:45 37.1 68 22 94/61 (72) 98 Vapotherm 30.00 60.00 08/22/21 02:50 60 Capillary Refill : General Appearance: No Apparent Distress, WD/WN, Chronically ill, Obese Respiratory: Lungs Clear, Normal Breath Sounds Cardiovascular: Regular Rate, Rhythm Neurologic/Psychiatric: Alert, Oriented x3, No Motor/Sensory Deficits, Normal Mood/Affect Results/Procedures Lab Laboratory Tests 08/21/21 05:45 Patient resulted labs reviewed. Imaging: Reviewed Imaging Report Assessment/Plan Assessment and Plan Assess & Plan/Chief Complaint Assessment: Acute respiratory failure due to COVID-19 Morbid obesity Anxiety and depression COVID+ 12/7 at [facility] Unvaccinated Requiring Vapotherm Decadron Discussed Actemra, risks/benefits/EUA use, patient agrees status post infusion Procal normal, no antibiotics Ddimer normal, prophylactic Lovenox May require ICU transfer if oxygen requirement worsens Continue home meds Dr. Schmidt discussed prognosis and plan with mother via phone DVT prophylaxis: Lovenox 08/20/2021: Supportive care High risk for intubation Vapotherm Monitor closely 08/21/2021: Supportive care High risk for intubation ELLIOTT REYNOSO DO Aug 21, 2021 05:48
[2021-08-21 06:02] LABS: BASOPHILS % (AUTO) 0 % (0-10); EOSINOPHILS # (AUTO) 0.1 10^3/uL (0.0-0.3); EOSINOPHILS % (AUTO) 3 % (0-10); HEMATOCRIT 41 % (35-52); HEMOGLOBIN 13.6 g/dL (11.5-16.0); LYMPHOCYTES # (AUTO) 1.2 10^3/uL (1.0-4.0); LYMPHOCYTES % (AUTO) 31 % (12-44); MEAN CORPUSCULAR HEMOGLOBIN 29 pg (25-34); MEAN CORPUSCULAR HGB CONC 34 g/dL (32-36); MEAN CORPUSCULAR VOLUME 86 fL (80-99); MEAN PLATELET VOLUME 9.9 fL (9.0-12.2); MONOCYTES # (AUTO) 0.4 10^3/uL (0.0-1.0); MONOCYTES % (AUTO) 11 % (0-12); NEUTROPHILS % (AUTO) 51 % (42-75); PLATELET COUNT 326 10^3/uL (130-400); WHITE BLOOD COUNT 3.9 10^3/uL (4.3-11.0)
[2021-08-21 06:14] LABS: ALBUMIN 3.3 GM/DL (3.2-4.5); POTASSIUM 3.5 MMOL/L (3.6-5.0)
[2021-08-21 06:15] LABS: CALCIUM 8.5 MG/DL (8.5-10.1)
[2021-08-21 06:17] LABS: TOTAL PROTEIN 6.5 GM/DL (6.4-8.2)
[2021-08-21 06:18] LABS: BILIRUBIN,TOTAL 0.3 MG/DL (0.1-1.0)
[2021-08-21 06:20] LABS: CREATININE SERUM 0.78 MG/DL (0.60-1.30)
[2021-08-21 07:53] VITALS: BP 102/66
[2021-08-21] MEDS: dexAMETHasone 6 MG TAB (DECADRON) PO SCH (08:33)
[2021-08-21] MEDS: ALPRAZolam 0.25 MG (XANAX) TAB PO PRN (08:33)
[2021-08-21] MEDS: DOCUSATE SODIUM 100 MG (COLACE) CAP PO SCH ×2 (08:33→20:55)
[2021-08-21] MEDS: DULoxetine 30 MG (CYMBALTA) CAP PO SCH ×2 (08:33→20:55)
[2021-08-21] MEDS: SENNA W/DOCUSATE (SENOKOT S) TABLET PO SCH ×2 (08:34→20:55)
[2021-08-21] MEDS: guaiFENesin (MUCINEX) 600 MG TAB PO SCH ×2 (08:34→20:55)
[2021-08-21 11:29] VITALS: BP 98/60
[2021-08-21 15:28] VITALS: BP 94/58
[2021-08-21] MEDS: ENOXAPARIN 40 MG/0.4 ML (LOVENOX) SYR SC SCH (15:33)
[2021-08-21 20:35] VITALS: BP 106/72
[2021-08-22] VITALS (7 sets, daily range): BP systolic 94–106; BP diastolic 52–73
[2021-08-22] MEDS: RT-ALBUTEROL HFA 8.5 GM INHALER IH SCH ×6 (02:50→23:00)
--- NOTE | 2021-08-22 05:58 | Progress Note - Hospitalist ---
Subjective HPI/CC On Admission Date Seen by Provider: Aug 22, 2021 Time Seen by Provider: 11:00 Destiny Rosenbaum is a 31 year old female with PMH anxiety, depression, morbid obesity, who presented with shortness of breath. She was diagnosed with COVID last week. She has been taking steroids and using home oxygen. She was still short of breath on her oxygen and returned to the ER. She has been having fevers. She has been having cough. She reports chest pain with coughing. She has had diarrhea. Her appetite is poor. She is unvaccinated. Subjective/Events-last exam Pt doing a little better Vapotherm will be transitioned to high flow but that did not last long and now she is back on Vapotherm No other new issues Eating and drinking a bit Long recovery Review of Systems General: Fatigue, Malaise Objective Exam Vital Signs Vital Signs Date Time Temp Pulse Resp B/P (MAP) Pulse Ox O2 Delivery O2 Flow Rate FiO2 08/23/21 04:01 36.4 80 18 105/63 (77) 92 Room Air 08/23/21 03:24 4.00 08/22/21 20:43 55 Capillary Refill : General Appearance: No Apparent Distress, WD/WN, Anxious, Chronically ill Respiratory: No Accessory Muscle Use, No Respiratory Distress, Decreased Breath Sounds Cardiovascular: Regular Rate, Rhythm Neurologic/Psychiatric: Alert, Oriented x3, No Motor/Sensory Deficits, Normal Mood/Affect Results/Procedures Lab Laboratory Tests 08/22/21 05:35 Patient resulted labs reviewed. Imaging: Reviewed Imaging Report Assessment/Plan Assessment and Plan Assess & Plan/Chief Complaint Assessment: Acute respiratory failure due to COVID-19 Morbid obesity Anxiety and depression COVID+ 08/13 at [facility] Unvaccinated Requiring Vapotherm Decadron Discussed Actemra, risks/benefits/EUA use, patient agrees status post infusion Procal normal, no antibiotics Ddimer normal, prophylactic Lovenox May require ICU transfer if oxygen requirement worsens Continue home meds Dr. Hardin discussed prognosis and plan with mother via phone DVT prophylaxis: Lovenox 08/20/2021: Supportive care High risk for intubation Vapotherm Monitor closely 08/21/2021: Supportive care High risk for intubation 08/22/2021: Supportive care Transition to high flow but likely will be slow ELLIOTT REYNOSO DO Aug 22, 2021 05:58
[2021-08-22 06:00] LABS: BASOPHILS % (AUTO) 1 % (0-10); EOSINOPHILS # (AUTO) 0.2 10^3/uL (0.0-0.3); EOSINOPHILS % (AUTO) 4 % (0-10); HEMATOCRIT 41 % (35-52); HEMOGLOBIN 13.5 g/dL (11.5-16.0); LYMPHOCYTES # (AUTO) 1.3 10^3/uL (1.0-4.0); LYMPHOCYTES % (AUTO) 32 % (12-44); MEAN CORPUSCULAR HEMOGLOBIN 28 pg (25-34); MEAN CORPUSCULAR HGB CONC 33 g/dL (32-36); MEAN CORPUSCULAR VOLUME 86 fL (80-99); MEAN PLATELET VOLUME 9.5 fL (9.0-12.2); MONOCYTES # (AUTO) 0.5 10^3/uL (0.0-1.0); MONOCYTES % (AUTO) 13 % (0-12); NEUTROPHILS % (AUTO) 48 % (42-75); PLATELET COUNT 321 10^3/uL (130-400); WHITE BLOOD COUNT 4.1 10^3/uL (4.3-11.0)
[2021-08-22] MEDS: PANTOPRAZOLE 40 MG (PROTONIX) TAB PO SCH (06:11)
[2021-08-22 06:20] LABS: ALBUMIN 3.3 GM/DL (3.2-4.5); POTASSIUM 3.5 MMOL/L (3.6-5.0)
[2021-08-22 06:21] LABS: CALCIUM 8.4 MG/DL (8.5-10.1)
[2021-08-22 06:23] LABS: TOTAL PROTEIN 6.4 GM/DL (6.4-8.2)
[2021-08-22 06:24] LABS: BILIRUBIN,TOTAL 0.4 MG/DL (0.1-1.0)
[2021-08-22 06:26] LABS: CREATININE SERUM 0.8 MG/DL (0.60-1.30)
[2021-08-22] MEDS: DULoxetine 30 MG (CYMBALTA) CAP PO SCH ×2 (08:52→21:05)
[2021-08-22] MEDS: guaiFENesin (MUCINEX) 600 MG TAB PO SCH ×2 (08:53→21:05)
[2021-08-22] MEDS: dexAMETHasone 6 MG TAB (DECADRON) PO SCH (08:53)
[2021-08-22] MEDS: SENNA W/DOCUSATE (SENOKOT S) TABLET PO SCH ×2 (08:53→20:57)
[2021-08-22] MEDS: DOCUSATE SODIUM 100 MG (COLACE) CAP PO SCH ×2 (08:53→20:57)
[2021-08-22] MEDS: ENOXAPARIN 40 MG/0.4 ML (LOVENOX) SYR SC SCH (14:45)
[2021-08-22] MEDS: ALPRAZolam 0.25 MG (XANAX) TAB PO PRN (22:24)
[2021-08-23] MEDS: RT-ALBUTEROL HFA 8.5 GM INHALER IH SCH ×4 (03:24→13:48)
[2021-08-23 04:01] VITALS: BP 105/63
--- NOTE | 2021-08-23 05:54 | Progress Note - Hospitalist ---
Subjective HPI/CC On Admission Date Seen by Provider: Aug 23, 2021 Time Seen by Provider: 10:00 Destiny Rosenbaum is a 31 year old female with PMH anxiety, depression, morbid obesity, who presented with shortness of breath. She was diagnosed with COVID last week. She has been taking steroids and using home oxygen. She was still short of breath on her oxygen and returned to the ER. She has been having fevers. She has been having cough. She reports chest pain with coughing. She has had diarrhea. Her appetite is poor. She is unvaccinated. Subjective/Events-last exam Hospital Course: Pt had a lengthy hospital course for 6 days. She was admitted for covid-19 pneumonia and with her BMI or 43 it was concerning that she was progressing with Vapotherm and BiPAP. She was given Actemera, IV antibiotics, Decadron and aggressive IS use. She recovered dramatically, was off oxygen supplementation and was deemed stable for DC. Review of Systems General: Fatigue Objective Exam Vital Signs Vital Signs Date Time Temp Pulse Resp B/P (MAP) Pulse Ox O2 Delivery O2 Flow Rate FiO2 08/23/21 16:41 36.5 88 16 110/65 92 Room Air 0.00 08/22/21 20:43 55 Capillary Refill : General Appearance: No Apparent Distress, WD/WN, Chronically ill Respiratory: Lungs Clear, Normal Breath Sounds Neurologic/Psychiatric: Alert, Oriented x3, No Motor/Sensory Deficits, Normal Mood/Affect Results/Procedures Lab Patient resulted labs reviewed. Imaging: Reviewed Imaging Report Assessment/Plan Assessment and Plan Assess & Plan/Chief Complaint Assessment: Acute respiratory failure due to COVID-19 Morbid obesity Anxiety and depression COVID+ 12/ at [facility] Unvaccinated Requiring Vapotherm Decadron Discussed Actemra, risks/benefits/EUA use, patient agrees status post infusion Procal normal, no antibiotics Ddimer normal, prophylactic Lovenox May require ICU transfer if oxygen requirement worsens Continue home meds Dr. Hardin discussed prognosis and plan with mother via phone DVT prophylaxis: Lovenox 08/20/2021: Supportive care High risk for intubation Vapotherm Monitor closely 08/21/2021: Supportive care High risk for intubation 08/22/2021: Supportive care Transition to high flow but likely will be slow 08/23/2021: Discharge home after dramatic improvement ELLIOTT REYNOSO DO Aug 23, 2021 05:54
[2021-08-23] MEDS: PANTOPRAZOLE 40 MG (PROTONIX) TAB PO SCH (06:05)
[2021-08-23 06:24] LABS: BASOPHILS % (AUTO) 0 % (0-10); EOSINOPHILS # (AUTO) 0.2 10^3/uL (0.0-0.3); EOSINOPHILS % (AUTO) 4 % (0-10); HEMATOCRIT 40 % (35-52); HEMOGLOBIN 13.2 g/dL (11.5-16.0); LYMPHOCYTES # (AUTO) 1.5 10^3/uL (1.0-4.0); LYMPHOCYTES % (AUTO) 32 % (12-44); MEAN CORPUSCULAR HEMOGLOBIN 28 pg (25-34); MEAN CORPUSCULAR HGB CONC 33 g/dL (32-36); MEAN CORPUSCULAR VOLUME 86 fL (80-99); MONOCYTES # (AUTO) 0.5 10^3/uL (0.0-1.0); MONOCYTES % (AUTO) 11 % (0-12); NEUTROPHILS # (AUTO) 2.3 10^3/uL (1.8-7.8); NEUTROPHILS % (AUTO) 49 % (42-75); PLATELET COUNT 348 10^3/uL (130-400); WHITE BLOOD COUNT 4.7 10^3/uL (4.3-11.0)
[2021-08-23 06:36] LABS: ALBUMIN 3.2 GM/DL (3.2-4.5); POTASSIUM 3.4 MMOL/L (3.6-5.0)
[2021-08-23 06:37] LABS: CALCIUM 8.5 MG/DL (8.5-10.1)
[2021-08-23 06:39] LABS: TOTAL PROTEIN 6.2 GM/DL (6.4-8.2)
[2021-08-23 06:40] LABS: BILIRUBIN,TOTAL 0.3 MG/DL (0.1-1.0)
[2021-08-23 06:42] LABS: CREATININE SERUM 0.81 MG/DL (0.60-1.30)
[2021-08-23 08:09] VITALS: BP 110/61
--- NOTE | 2021-08-23 08:21 | Diagnostic Imaging Report ---
EXAMINATION: Chest radiograph, portable AP view. DATE: 08/23/2021 6:36 AM INDICATION: 31-year-old female, shortness of breath. History of COVID 19 infection and multifocal pneumonia. COMPARISON: August 18, 2021. FINDINGS: Heart size and mediastinal contours are unchanged. There is no identified pneumothorax. There is multifocal bilateral lung consolidation which is essentially unchanged. IMPRESSION: 1. Essentially unchanged multifocal bilateral lung consolidation. Report was [facility]ed [facility] by edward at 8:19am. Dictated by: Dictated on workstation # [id number]
[2021-08-23] MEDS: SENNA W/DOCUSATE (SENOKOT S) TABLET PO SCH (09:25)
[2021-08-23] MEDS: guaiFENesin (MUCINEX) 600 MG TAB PO SCH (09:25)
[2021-08-23] MEDS: DOCUSATE SODIUM 100 MG (COLACE) CAP PO SCH (09:25)
[2021-08-23] MEDS: DULoxetine 30 MG (CYMBALTA) CAP PO SCH (09:25)
[2021-08-23] MEDS: dexAMETHasone 6 MG TAB (DECADRON) PO SCH (09:28)
[2021-08-23 12:00] VITALS: BP 110/65
[2021-08-23] MEDS ORDERED: DEXA6TAB PO (12:33)
[2021-08-23] MEDS ORDERED: PANT40TA52 PO (12:33)
--- NOTE | 2021-08-23 12:34 | Discharge Summary ---
Discharge Summary Hospital Course Was the Problem List Reviewed?: Yes Problems/Dx: (1) Acute respiratory failure due to COVID-19 Status: Acute (2) Lymphopenia associated with COVID-19 Status: Acute (3) Morbid obesity Status: Chronic (4) Anxiety and depression Status: Chronic Hospital Course Date of Admission: Aug 18, 2021 at 13:17 Admission Diagnosis : Family Physician/Provider: Oanh Date of Discharge: 08/23/21 Discharge Diagnosis: Acute hypoxic respiratory failure, COVID-19 pneumonia, increased BMI Hospital Course: Hospital Course: Pt had a lengthty hospital course for 6 days. She was admitted for covid-19 pneumonia and with her BMI or 43 it was concerning that she was progressing with Vapotherm and BiPAP. She was given Actemera, IV antibiotics, Decadron and aggressive IS use. She recovered dramatically, was off oxygen supplementation and was deemed stable for DC. Labs and Pending Lab Test: Laboratory Tests 08/23/21 05:22: White Blood Count 4.7, Red Blood Count 4.69, Hemoglobin 13.2, Hematocrit 40, Mean Corpuscular Volume 86, Mean Corpuscular Hemoglobin 28, Mean Corpuscular Hemoglobin Concent 33, Red Cell Distribution Width 13.1, Platelet Count 348, Mean Platelet Volume 10.0, Immature Granulocyte % (Auto) 4, Neutrophils (%) (Auto) 49, Lymphocytes (%) (Auto) 32, Monocytes (%) (Auto) 11, Eosinophils (%) (Auto) 4, Basophils (%) (Auto) 0, Neutrophils # (Auto) 2.3, Lymphocytes # (Auto) 1.5, Monocytes # (Auto) 0.5, Eosinophils # (Auto) 0.2, Basophils # (Auto) 0.0, Immature Granulocyte # (Auto) 0.2H, Sodium Level 140, Potassium Level 3.4L, Chloride Level 104, Carbon Dioxide Level 25, Anion Gap 11, Blood Urea Nitrogen 16, Creatinine 0.81, Estimat Glomerular Filtration Rate 82, BUN/Creatinine Ratio 20, Glucose Level 92, Calcium Level 8.5, Corrected Calcium 9.1, Total Bilirubin 0.3, Aspartate Amino Transf (AST/SGOT) 43H, Alanine Aminotransferase (ALT/SGPT) 85H, Alkaline Phosphatase 52, Total Protein 6.2L, Albumin 3.2 Home Meds Active Dexamethasone 6 Mg Tablet 6 Mg PO DAILY Pantoprazole Sodium 40 Mg Tablet.dr 40 Mg PO DAILY@0700 Reported Mucinex (Guaifenesin) 600 Mg Tab.er.12h 600 Mg PO DAILY PRN Ibuprofen 200 Mg Tablet 200 Mg PO Q8H PRN Tylenol Extra Strength (Acetaminophen) 500 Mg Tablet 500 Mg PO Q8H PRN Quetiapine Fumarate 300 Mg Tablet 300 Mg PO HS LAST FILLED 05-17-2021 #30/30 DAY SUPPLY Aripiprazole 30 Mg Tablet 30 Mg PO DAILY Buspirone HCl 10 Mg Tablet 20 Mg PO DAILY TAKES 2 (10MG) TABLETS Cymbalta (Duloxetine HCl) 60 Mg Capsule.dr 120 Mg PO DAILY TAKES 2 (60MG) CAPSULES Assessment/Pt Instructions Follow-up with PCP in 2 weeks Discharge Planning: <30 minutes discharge planning Discharge Instructions Discharge Diet: No Restrictions Discharge Physical Examination Vital Signs Vital Signs Date Time Temp Pulse Resp B/P (MAP) Pulse Ox O2 Delivery O2 Flow Rate FiO2 08/23/21 12:00 36.5 88 16 110/65 (80) 97 Room Air 08/23/21 11:16 0.00 08/22/21 20:43 55 General Appearance: No Apparent Distress, WD/WN, Chronically ill, Obese Allergies: Coded Allergies: shellfish derived (Verified Allergy, Mild, GI UPSET, 06/09/18) Discharge Summary Date of Admission Aug 18, 2021 at 13:17 Date of Discharge Discharge Date: Aug 23, 2021 Admission Diagnosis Acute respiratory failure due to COVID-19 Discharge Diagnosis Assessment: Acute respiratory failure due to COVID-19 Morbid obesity Anxiety and depression COVID+ 12/7 at [facility] Unvaccinated Requiring Vapotherm Decadron Discussed Actemra, risks/benefits/EUA use, patient agrees status post infusion Procal normal, no antibiotics Ddimer normal, prophylactic Lovenox May require ICU transfer if oxygen requirement worsens Continue home meds Dr. Hardin discussed prognosis and plan with mother via phone DVT prophylaxis: Lovenox 08/20/2021: Supportive care High risk for intubation Vapotherm Monitor closely 08/21/2021: Supportive care High risk for intubation 08/22/2021: Supportive care Transition to high flow but likely will be slow (1) Acute respiratory failure due to COVID-19 Status: Acute (2) Lymphopenia associated with COVID-19 Status: Acute (3) Morbid obesity Status: Chronic (4) Anxiety and depression Status: Chronic ELLIOTT REYNOSO DO Aug 23, 2021 12:34
--- NOTE | 2021-08-23 13:50 | Occupational Therapy Eval ---
OT Evaluation-General/PLF Medical Diagnosis Admission Date Aug 18, 2021 at 13:17 Medical Diagnosis: Covid + Onset Date: Aug 18, 2021 Therapy Diagnosis Therapy Diagnosis: n/a Height/Weight Height (Feet): 5 Height (Inches): 2.00 Weight (Pounds): 220 Weight (Ounces): 0.0 Precautions Precautions/Isolations: Airborne Isolation, Contact Isolation, Droplet Isolation Referral Physician: janice Referral Reason: Evaluation/Treatment Medical History Current History presents to ER with increased SOB. Diagnosed with Covid last week. Reports she was sent home with oxygen when diagnosed. Pt states she lives with her mother and son. Indep with all adls prior to admission. No AD. Reviewed History: Yes Social History Home: Single Level Current Living Status: Other Family ADL-Prior Level of Function SCALE: Activities may be completed with or without assistive devices. 2-Prmivhprdr-nizbdpf completes the activity by him/herself with no assistance from a helper. 5-Set-up or Clean-up Assistance-helper sets up or cleans up; patient completes activity. [place] assists only prior to or following the activity. 4-Supervision or Touching Assistance-helper provides verbal cues and/or touching/steadying and/or contact guard assistance as patient completes activity. Assistance may be provided throughout the activity or intermittently. 3-Partial/Moderate Assistance-helper does LESS THAN HALF the effort. Wayne lifts, holds or supports trunk or limbs, but provides less than half the effort. 2-Substantial/Maximal Assistance-helper does MORE THAN HALF the effort. Wayne lifts or holds trunk or limbs and provides more than half the effort. 0-Axvshxptw-iyrlrq does ALL the effort. Patient does none of the effort to c omplete the activity. Or, the assistance of 2 or more helpers is required for the patient to complete the activity. If activity was not attempted, code reason: 7-Patient Refused. 9-Not Applicable-not attempted and the patient did not perform the activity before the current illness, exacerbation or injury. 10-Not Attempted due to Environmental Limitations-(lack of equipment, weather restraints, etc.). 88-Not Attempted due to Medical Conditions or Safety Concerns. Self Care: Independent Functional Cognition: Independent OT Current Status Subjective Pt agreeable to eval, wishes to go home. Appearance Left ambulating around room with respiratory therapy present. Mental Status/Objective Patient Orientation: Person, Place, Situation Attachments: IV, Oxygen Current Upper Extremity ROM WNL ADL-Treatment Lower Body Dressing (QC): 6 On/Off Footwear (QC): 6 Toileting Hygiene (QC): 6 Pt up ad blake at OT arrival. She reports she is getting ready to don pants. Pt stood to thread feet into pants and into socks. No LOB or unsteadiness observed. She ambulated around room for walk test with respiratory therapy present to assess oxygen levels. Pt appeared to tolerate well. No AD used. No OT services warranted at this time. OT to d/c. Education OT Patient Education: Disease process, Energy conservation, Purpose of tx/functional activities Teaching Recipient: Patient Teaching Methods: Discussion Response to Teaching: Verbalize Understanding OT It Quality Analyst Goals Residential Goals 1=Demonstrate adherence to instructed precautions during ADL tasks. 2=Patient will verbalize/demonstrate understanding of assistive devices/modifications for ADL. 3=Patient will improve strength/tolerance for activity to enable patient to perform ADL's. OT Education/Plan Problem List/Assessment Assessment: No Skilled OT Needs ID'd Discharge Recommendations Plan/Recommendations: Discontinue OT Therapy Discharge Recommendati: Home & Family Treatment Plan/Plan of Care Treatment,Training & Education: Yes Patient would benefit from OT for education, treatment and training to promote independence in ADL's, mobility, safety and/or upper extremity function for ADL's. Plan of Care: ADL Retraining Treatment Duration: Aug 23, 2021 Frequency: 1 time per week Estimated Hrs Per Day: .25 hour per day Agreement: Yes Time/GCodes Start Time: 13:03 Stop Time: 13:17 Total Time Billed (hr/min): 14 Billed Treatment Time 1 visit Courtney Saavedra OT Aug 23, 2021 13:50
--- NOTE | 2021-08-23 14:29 | Physical Therapy Evaluation ---
PT Evaluation-General Medical Diagnosis Admission Date Aug 18, 2021 at 13:17 Medical Diagnosis: Covid + Onset Date: Aug 18, 2021 Therapy Diagnosis Therapy Diagnosis: independent with mobility Height/Weight Height (Feet): 5 Height (Inches): 2.00 Weight (Pounds): 220 Weight (Ounces): 0.0 Precautions Precautions/Isolations: Airborne Isolation, Contact Isolation, Droplet Isolation Referral Physician: Kait Pickett DO Reason for Referral: Evaluation/Treatment Medical History Additional Medical History Past Medical History Surgeries: Tonsillectomy Headaches /Migraines Sexually Transmitted Disease: No HIV/AIDS: No Gastroesophageal Reflux Loss of Vision: Bilateral Hearing Impairment: Denies Anxiety, Depression Reviewed History: Yes Social History Home: Single Level Current Living Status: Other Family Prior Prior Level of Function SCALE: Activities may be completed with or without assistive devices. 1-Hezevtzjnz-xyyhobm completes the activity by him/herself with no assistance from a helper. 5-Set-up or Clean-up Assistance-helper sets up or cleans up; patient completes activity. [place] assists only prior to or following the activity. 4-Supervision or Touching Assistance-helper provides verbal cues and/or touching/steadying and/or contact guard assistance as patient completes activity. Assistance may be provided throughout the activity or intermittently. 3-Partial/Moderate Assistance-helper does LESS THAN HALF the effort. [place] lifts, holds or supports trunk or limbs, but provides less than half the effort. 2-Substantial/Maximal Assistance-helper does MORE THAN HALF the effort. [place] lifts or holds trunk or limbs and provides more than half the effort. 4-Cqvhvyjfc-xhwnav does ALL the effort. Patient does none of the effort to complete the activity. Or, the assistance of 2 or more helpers is required for the patient to complete the activity. If activity was not attempted, code reason: 7-Patient Refused. 9-Not Applicable-not attempted and the patient did not perform the activity before the current illness, exacerbation or injury. 10-Not Attempted due to Environmental Limitations-(lack of equipment, weather restraints, etc.). 88-Not Attempted due to Medical Conditions or Safety Concerns. Bed Mobility: 6 Transfers (B,C,W/C): 6 Gait: 6 Stairs: 6 Indoor Mobility (Ambulation): Independent Stairs: Independent PT Evaluation-Current Subjective Patient in bed pre tx, agrees to PT, has minor back pain. Pt/Family Goals "to go home" Objective Patient Orientation: Person, Place, Situation ROM/Strength ROM Lower Extremities WNL Strength Lower Extremities BLE grossly 5/5 Sensory Hearing: Functional Transfers Roll Left to Right (QC): 6 Sit to Lying (QC): 6 Lying to Sitting/Side of Bed(Q: 6 Sit to Stand (QC): 6 Chair/Pty-st-[place] Xfer(QC): 6 Gait Does the Patient Walk?: Yes Mode of Locomotion: Walk Anticipated Mode of Locomotion: Walk Walk 10 feet (QC): 6 Walk 50 ft with 2 Turns(QC): 6 Distance: 50' Gait Assistive Device: None Comments/Gait Description patient walked about her room independently for about 50' Balance Sitting Static: Normal Sitting Dynamic: Normal Standing Static: Normal Standing Dynamic: Normal Assessment/Needs Patient in bed post tx with nurse call, phone, tray, all needs met. Patient is independent with mobility and states she sees no need for physical therapy. Patient will be discharged from PT at this time. Rehab Potential: Good PT Plan Treatment/Plan Treatment Plan: Discontinue PT Treatment Duration: Aug 23, 2021 Frequency: Safety Risks/Education Patient Education: Gait Training, Transfer Techniques, Correct Positioning, Safety Issues Teaching Recipient: Patient Teaching Methods: Demonstration, Discussion Response to Teaching: Verbalize Understanding, Return Demonstration Discharge Recommendations Plan DC Therapy Discharge Recommendati: Home & Family Time/GCodes Time In: 1406 Time Out: 1414 Total Billed Treatment Time: 8 Total Billed Treatment 1 visit BONIFACIO 8' HENRIETTA TAVERAS PT Aug 23, 2021 14:29
[2021-08-23 16:41] VITALS: BP 110/65
== END 2021-08-23 16:42 | disposition home or self-care (01) | DRG 177 ==
LOC: EDUNIT# 11:52 → ER 11:54 → EDLOC 13:17 → 4TH 13:17
PROVIDERS: ADMIT Internal Medicine; ATTEND Internal Medicine
DX: U07.1 COVID-19 (principal); J96.01 Acute respiratory failure with hypoxia; J12.82 Pneumonia due to coronavirus disease 2019; Z68.41 Body mass index [BMI] 40.0-44.9, adult; Z79.899 Other long term (current) drug therapy; G43.909 Migraine, unspecified, not intractable, without status migrainosus; K21.9 Gastro-esophageal reflux disease without esophagitis; F41.9 Anxiety disorder, unspecified; F32.A Depression, unspecified; E66.01 Morbid (severe) obesity due to excess calories; D72.810 Lymphocytopenia; Z73.0 Burn-out
CPT/HCPCS: 36415; 71045; 80048; 80053; 84145; 84703; 85025; 85379; 86141; 94640; 94664; 94760; 94761